=== PATIENT | female | born 1985 | race American Indian/Alaskan Native ===

== ENCOUNTER 2020-11-05 09:31 | Outpatient (CLI) | payer MEDICARE ==
--- NOTE | 2020-11-05 11:29 | Ultrasound Report ---
US soft tissue head and neck INDICATION / CLINICAL INFORMATION: L03.811/L02.9. COMPARISON: None available. FINDINGS: Within the right infra-auricular soft tissues, there is a 3.6 x 0.7 x 3.2 cm heterogeneously hypoecho ic focus. There is significant flow within this with Doppler interrogation. IMPRESSION: 1. 3.6 cm heterogeneous lesion in the right infra-auricular soft tissues. CT of the neck without and with intravenous contrast is recommended to better characterize this. Signer Name: Celio Daly MD Signed: 11/05/2020 11:24 AM Workstation Name: [id number]
== END 2020-11-05 09:32 | disposition home or self-care (01) ==
LOC: US 09:31
PROVIDERS: ATTEND Nurse Practitioner Family
DX: M79.89 Other specified soft tissue disorders (principal); H61.891 Other specified disorders of right external ear; L03.811 Cellulitis of head [any part, except face]; L02.91 Cutaneous abscess, unspecified
CPT/HCPCS: 76536

== ENCOUNTER 2020-12-02 11:11 | Emergency (ER) | payer MEDICARE ==
--- NOTE | 2020-12-02 11:48 | Emergency Department Report ---
ED CPR HPI - General Stated Complaint: CARDIAC ARREST Time Seen by Provider: 12/02/20 11:44 - History of Present Illness Initial Comments: This is a 35-year-old female who arrives CPR in progress. Medic report is that the patient was stuporous on their arrival. She was loaded into the ambulance. She is found to have a sinus tachycardia. She was intubated. An IO was placed in her tibia. She was given Narcan. The patient sustained a full cardiac a rrest. Medics report that there was an empty bottle of tizanidine (180 tablets total) found that the patient's bedside. They also state that there was a "OB call to the residence" 1 week ago. Despite successful intubation and timely CPR with intravenous access, the patient went into asystole. She had been given 4 mg of epinephrine prior to her arrival. She presented with fixed and dilated pupils. She was not given atropine. She was defibrillated twice per staff certified nurse midwife. She was not given bicarb. She was largely in asystole as per medic report. On arrival, the patient had occasional complexes probably at a rate of approximately 20. There is no associated pulse. She was on the thumper device which was continued. Tube position was checked with good bilateral breath sounds. However end-tidal CO2 was reading purple most likely consistent with prolonged lack of circulation. CPR was continued. MD Complaint: stopped breathing -: minute(s), hour(s) Place: home Bystander CPR Performed: No Initial Findings in the Field: unresponsive ROSC in the Field: No Associated Injuries: No Associated Symptoms: other (Presumed overdose) Treatments Prior to Arrival: intubation, chest compressions, defribrillated shocks # (2), epinephrine mgs # (4), other (Narcan 2 mg) ED Review of Systems ROS: Stated complaint: CARDIAC ARREST Other details as noted in HPI Comment: Unobtainable due to pts medical conditions ED Past Medical Hx - Past Medical History Previous Medical History?: No Additional medical history: Nothing referred per medic. - Social History Smoking Status: Unknown if ever smoked Other Social History: Unknown ED Physical Exam - General Limitations: Other General appearance: other (Cyanotic) - Head Head exam: Present: atraumatic - Eye Pupils: Present: other (Pupils fixed and dilated) - ENT ENT exam: Present: mucous membranes dry - Neck Neck exam: Present: normal inspection - Respiratory Respiratory exam: Present: normal lung sounds bilaterally (With Ambu bag assist) - Cardiovascular Cardiovascular Exam: Present: other (No heart sounds) - GI/Abdominal GI/Abdominal exam: Present: distended (Somewhat but no mass-effect or organomegaly obvious) - Extremities Exam Extremities exam: Present: other (IO tibia) - Back Exam Back exam: Present: other (Unable to sound) - Neurological Exam Neurological exam: Present: other (GCS 3) - Psychiatric Psychiatric exam: Present: other (Inapplicable) - Skin Skin exam: Present: cyanosis ED Course - Reevaluation(s) Reevaluation #1: Resuscitation continued. The patient was given epi and bicarb. She had complexes at a very slow rate noted. There was no conducted pulse. Bedside ultrasound was performed. There was no evidence of cardiac activity. The abdom en was examined. There was no evidence of an intrauterine seen grossly. Thumper was removed. Patient had no signs of life. Occasional complex consistent with PEA rhythm only. She was pronounced. Further resuscitative efforts were deemed futile. Family will be counseled when available. 12/02/20 11:54 Reevaluation #2: Patient will have a listed diagnosis of overdose. This is a presumption. However the presentation could be consistent with a massive tizanidine overdose as there was a bradycardic rhythm. The exact cause of the patient's would only be determined upon autopsy. 12/02/20 11:56 Critical care attestation.: If time is entered above; I have spent that time in minutes in the direct care of this critically ill patient, excluding procedure time. ED Disposition Clinical Impression: Cardiac arrest Overdose Qualifiers: Encounter type: initial encounter Injury intent: undetermined intent Qualified Code(s): T50.904A - Poisoning by unspecified drugs, medicaments and biological substances, undetermined, initial encounter Disposition: DC-20 Is pt being admited?: No Does the pt Need Aspirin: No Condition: Stable Referrals: PRIMARY CARE, [Primary Care Provider] - 3-5 Days Time of Disposition: 11:57
[2020-12-02] MEDS ORDERED: EPINEPHrine 1 MG/10 ML SYRINGE ONE (14:08)
[2020-12-02] MEDS ORDERED: SODIUM BICARB 8.4% 50 MEQ/50 ML SYRINGE IV ONE (14:08)
[2020-12-02] MEDS ORDERED: SODIUM CHLORIDE 0.9% 1000 ML IV SOLN ONE (14:43)
== END 2020-12-02 18:22 ==
LOC: ED 11:11
DX: T42.8X1A Poisoning by antiparkinsonism drugs and other central muscle-tone depressants, accidental (unintentional), initial encounter (principal); I46.9 Cardiac arrest, cause unspecified; Y92.89 Other specified places as the place of occurrence of the external cause
CPT/HCPCS: 92950; 99285; J0171; J7030